=== PATIENT | male | born 1965 | race Two or more races ===

== ENCOUNTER 2020-11-16 16:18 | Inpatient (IN) | payer MEDICAID ==
[~2020-11-16] VITALS: Ht 177.8 cm; Wt 118.1 kg
[2020-11-16] MEDS ORDERED: CLINDAMYCIN 600MG IV 50 ML IV ONE (17:45)
[2020-11-16 17:52] LABS: Basophils # (auto) 0 10 ^3/uL (0-0.2); Basophils % (auto) 0.6 % (0.0-2.0); Eosinophils # (auto) 0.1 10 ^3/uL (0-0.8); Eosinophils % (auto) 1.7 % (0.0-7.0); Hematocrit 37.4 % (41.0-53.0); Hemoglobin 12.7 g/dL (13.5-17.5); Lymphocytes # (auto) 2.3 10 ^3/uL (0.4-5.4); Lymphocytes % (auto) 41.1 % (10.0-50.0); Mean Corpuscular Hemoglobin 27.3 pg (28.0-32.0); Mean Corpuscular Hgb Conc. 34.1 g/dL (32.0-36.0); Monocytes # (auto) 0.3 10 ^3/uL (0-1.3); Monocytes % (auto) 5.3 % (0.0-12.0); Neutrophils # (auto) 2.8 10 ^3/uL (1.6-8.6); Neutrophils % (auto) 51.3 % (37.0-80.0); Nucleated Red Blood Cells % 0.2 %; Platelet Count (auto) 209 10^3/uL (140-450); Red Blood Cells 4.67 10^6/uL (4.5-5.90); Red Cell Distribution Width 13.6 % (11.8-14.3); White Blood Cell 5.6 10^3/uL (4.4-10.8)
[2020-11-16 17:58] LABS: Albumin 2.7 g/dL (3.4-5.0); Calcium 8.5 mg/dL (8.5-10.1)
[2020-11-16 18:01] LABS: BUN/Creatinine Ratio 13.3; Bilirubin, Total 0.3 mg/dL (0.2-1.0); Total Protein 7.6 g/dL (6.4-8.2)
[2020-11-16 18:28] LABS: INR 3.15 (0.9-1.15); Partial Thromboplastin Time 39.6 sec (23.0-31.2)
[2020-11-16] MEDS ORDERED: ONDANSETRON HCL 4 MG/2 ML VIAL IV PRN (19:00)
[2020-11-16] MEDS ORDERED: MORPHINE SULF INJ 2 MG/ML SYRINGE 1ML IV PRN (19:00)
[2020-11-16] MEDS ORDERED: HYDROcodone-ACET 5/325MG TAB PO PRN (19:00)
[2020-11-16] MEDS ORDERED: DOCUSATE SOD 100 MG CAP PO PRN (19:00)
[2020-11-16] MEDS ORDERED: NITROGLYCERIN 0.4 MG SL TAB SL PRN (19:00)
[2020-11-16] MEDS ORDERED: MORPHINE SULFATE 4 MG/ML SYR/VIAL IV PRN (19:00)
[2020-11-16] MEDS ORDERED: TEMAZEPAM 15 MG CAP PO PRN (19:00)
[2020-11-16 21:33] VITALS: BP 143/75
[2020-11-16] MEDS: CLINDAMYCIN 600MG IV 50 ML IV SCH (23:21)
[2020-11-16] MEDS: ASCORBIC ACID 500 MG TAB PO SCH (23:21)
[2020-11-16] MEDS: FAMOTIDINE 20 MG TAB PO SCH (23:21)
[2020-11-16 23:54] VITALS: BP 143/75
[2020-11-17] MEDS ORDERED: INSU1INJ3 SC (01:38)
[2020-11-17] MEDS ORDERED: LISI-646 PO (01:38)
[2020-11-17] MEDS ORDERED: ASPI81CH74 PO (01:38)
[2020-11-17] MEDS ORDERED: ATO40T PO (01:38)
[2020-11-17] MEDS ORDERED: METF-370 PO (01:38)
[2020-11-17] MEDS ORDERED: CIPR500T4 PO (01:38)
[2020-11-17] MEDS ORDERED: DEXTROSE (50%) 50ML SYRG IV PRN (03:45)
[2020-11-17 05:00] VITALS: BP 138/75
[2020-11-17] MEDS: ACCU-CHEK COMFORT CURVE STRIP VI SCH ×4 (06:14→21:40)
[2020-11-17] MEDS: CLINDAMYCIN 600MG IV 50 ML IV SCH (06:14)
[2020-11-17] MEDS: InsuLIN REG 1unit/0.01ml Soln (100units/ml) SC SCH ×4 (06:18→21:41)
[2020-11-17 06:55] LABS: Albumin 2.4 g/dL (3.4-5.0); BUN/Creatinine Ratio 11.1; Bilirubin, Total 0.4 mg/dL (0.2-1.0); Calcium 8.4 mg/dL (8.5-10.1); Total Protein 6.9 g/dL (6.4-8.2)
[2020-11-17 07:03] LABS: Basophils # (auto) 0 10 ^3/uL (0-0.2); Basophils % (auto) 0.5 % (0.0-2.0); Eosinophils # (auto) 0.2 10 ^3/uL (0-0.8); Eosinophils % (auto) 2.7 % (0.0-7.0); Hematocrit 35.8 % (41.0-53.0); Lymphocytes # (auto) 2.8 10 ^3/uL (0.4-5.4); Lymphocytes % (auto) 48.9 % (10.0-50.0); Mean Corpuscular Hgb Conc. 33.6 g/dL (32.0-36.0); Mean Corpuscular Volume 80.3 fL (80.0-100.0); Monocytes # (auto) 0.4 10 ^3/uL (0-1.3); Monocytes % (auto) 6.2 % (0.0-12.0); Neutrophils # (auto) 2.4 10 ^3/uL (1.6-8.6); Neutrophils % (auto) 41.7 % (37.0-80.0); Platelet Count (auto) 200 10^3/uL (140-450); Red Blood Cells 4.46 10^6/uL (4.5-5.90); Red Cell Distribution Width 13.8 % (11.8-14.3); White Blood Cell 5.7 10^3/uL (4.4-10.8)
[2020-11-17 08:00] VITALS: BP 153/84
[2020-11-17 09:00] VITALS: BP 153/84
[2020-11-17] MEDS ORDERED: VANCOMYCIN PER PHARMACY 0 MG IV SCH (10:00)
[2020-11-17] MEDS: ZINC SULFATE 220mg CAP or TAB PO SCH (12:59)
[2020-11-17] MEDS: MULTIPLE VITAMIN TAB PO SCH (12:59)
[2020-11-17] MEDS: FAMOTIDINE 20 MG TAB PO SCH ×2 (12:59→21:40)
[2020-11-17 13:00] VITALS: BP 149/74
[2020-11-17] MEDS: ASCORBIC ACID 500 MG TAB PO SCH ×2 (13:00→21:40)
[2020-11-17] MEDS: VANCOMYCIN 1GM/250ML 250 ML IV SCH ×2 (13:01→19:47)
[2020-11-17 16:43] VITALS: BP 152/82
[2020-11-17 22:00] VITALS: BP 153/79
[2020-11-18] MEDS: VANCOMYCIN 1GM/250ML 250 ML IV SCH ×3 (04:04→19:55)
[2020-11-18 05:00] VITALS: BP 157/77
[2020-11-18] MEDS: ACCU-CHEK COMFORT CURVE STRIP VI SCH ×4 (06:32→21:48)
[2020-11-18] MEDS: InsuLIN REG 1unit/0.01ml Soln (100units/ml) SC SCH ×4 (06:35→21:50)
[2020-11-18 08:05] VITALS: BP 172/85
[2020-11-18 09:00] VITALS: BP 172/85
[2020-11-18] MEDS: MULTIPLE VITAMIN TAB PO SCH (09:34)
[2020-11-18] MEDS: ZINC SULFATE 220mg CAP or TAB PO SCH (09:34)
[2020-11-18] MEDS: FAMOTIDINE 20 MG TAB PO SCH ×2 (09:34→21:48)
[2020-11-18] MEDS: ASCORBIC ACID 500 MG TAB PO SCH ×2 (09:35→21:48)
[2020-11-18] MEDS: hydrALAZINE HCL 20 MG/ML VL IV PRN ×2 (09:37→21:49)
[2020-11-18 13:00] VITALS: BP 170/87
[2020-11-18 16:54] VITALS: BP 167/84
[2020-11-18] MEDS: DAKINS QUARTER STR 0.125% (NaHypochlorite) 473 ML TOPICAL SOL TOP SCH (21:49)
[2020-11-18 22:00] VITALS: BP 163/77
[2020-11-19] MEDS: VANCOMYCIN 1GM/250ML 250 ML IV SCH ×3 (04:03→20:38)
[2020-11-19 05:30] VITALS: BP 155/78
[2020-11-19] MEDS: ACCU-CHEK COMFORT CURVE STRIP VI SCH ×4 (06:29→21:53)
[2020-11-19] MEDS: InsuLIN REG 1unit/0.01ml Soln (100units/ml) SC SCH ×4 (06:32→21:58)
[2020-11-19] MEDS ORDERED: DAKINS QUARTER STR 0.125% (NaHypochlorite) 473 ML TOPICAL SOL TOP ONE (07:45)
[2020-11-19] MEDS ORDERED: LIDOCAINE 1% HCL (LOCAL ANESTH.) INJ 20ML MDV ONE (08:01)
[2020-11-19] MEDS ORDERED: BUPIVACAINE 0.5% MPF INJ 30ML SDV IJ ONE (08:01)
[2020-11-19 08:39] VITALS: BP 151/77
[2020-11-19 08:44] LABS: Basophils # (auto) 0 10 ^3/uL (0-0.2); Basophils % (auto) 0.4 % (0.0-2.0); Eosinophils # (auto) 0.1 10 ^3/uL (0-0.8); Eosinophils % (auto) 1.6 % (0.0-7.0); Hematocrit 42.1 % (41.0-53.0); Hemoglobin 14.2 g/dL (13.5-17.5); Lymphocytes # (auto) 2.5 10 ^3/uL (0.4-5.4); Lymphocytes % (auto) 34.9 % (10.0-50.0); Mean Corpuscular Hemoglobin 27.1 pg (28.0-32.0); Mean Corpuscular Hgb Conc. 33.7 g/dL (32.0-36.0); Mean Corpuscular Volume 80.4 fL (80.0-100.0); Monocytes # (auto) 0.4 10 ^3/uL (0-1.3); Neutrophils # (auto) 4.2 10 ^3/uL (1.6-8.6); Neutrophils % (auto) 58.1 % (37.0-80.0); Nucleated Red Blood Cells % 0.6 %; Platelet Count (auto) 215 10^3/uL (140-450); Red Blood Cells 5.24 10^6/uL (4.5-5.90); Red Cell Distribution Width 13.9 % (11.8-14.3); White Blood Cell 7.2 10^3/uL (4.4-10.8)
[2020-11-19 08:45] LABS: INR 0.99 (0.9-1.15); Partial Thromboplastin Time 27.1 sec (23.0-31.2)
[2020-11-19 08:50] LABS: Albumin 2.8 g/dL (3.4-5.0); BUN/Creatinine Ratio 12.1; Bilirubin, Total 0.5 mg/dL (0.2-1.0); Calcium 8.8 mg/dL (8.5-10.1); Total Protein 7.8 g/dL (6.4-8.2)
[2020-11-19] MEDS ORDERED: MIDAZOLAM HCL 1MG/1ML-2 ML VIAL ONE (09:06)
[2020-11-19] MEDS ORDERED: fentaNYL CITRATE 100 MCG/2 ML VL ONE (09:06)
[2020-11-19] MEDS ORDERED: ceFAZolin 1GM/50ML 50 ML IV ONE ×2 (09:17→09:20)
[2020-11-19] MEDS: ZINC SULFATE 220mg CAP or TAB PO SCH (10:00)
[2020-11-19] MEDS: DAKINS QUARTER STR 0.125% (NaHypochlorite) 473 ML TOPICAL SOL TOP SCH ×2 (10:00→22:00)
[2020-11-19] MEDS: ASCORBIC ACID 500 MG TAB PO SCH ×2 (10:00→21:47)
[2020-11-19] MEDS: MULTIPLE VITAMIN TAB PO SCH (10:00)
[2020-11-19] MEDS: FAMOTIDINE 20 MG TAB PO SCH ×2 (10:00→21:47)
[2020-11-19] MEDS ORDERED: ONDANSETRON HCL 4 MG/2 ML VIAL IV PRN (10:30)
[2020-11-19] MEDS ORDERED: HYDROmorphone HCL 2 MG/ML VL IV PRN (10:30)
[2020-11-19 10:55] VITALS: BP 144/78
[2020-11-19 13:00] VITALS: BP 148/78
[2020-11-19 16:55] VITALS: BP 165/91
[2020-11-19] MEDS: AMPICILLIN & SULBACTAM SODIUM 3 GM in SODIUM CHL 0.9% 100 ML IV SCH ×2 (18:00→23:53)
[2020-11-19] MEDS ORDERED: LIDOCAINE 1% (LOCAL ANESTH.) PF 5ml SDV ID ONE (20:45)
[2020-11-19 22:00] VITALS: BP 154/81
[2020-11-19] MEDS: SODIUM CHLOR 0.9% PF (SALINE LOCK) 10ML VIAL/SYR IV SCH (22:23)
[2020-11-20] MEDS: VANCOMYCIN 1GM/250ML 250 ML IV SCH ×3 (04:46→20:04)
[2020-11-20 05:00] VITALS: BP 137/78
[2020-11-20] MEDS: InsuLIN REG 1unit/0.01ml Soln (100units/ml) SC SCH ×4 (06:18→21:12)
[2020-11-20] MEDS: ACCU-CHEK COMFORT CURVE STRIP VI SCH ×4 (06:18→21:12)
[2020-11-20] MEDS: AMPICILLIN & SULBACTAM SODIUM 3 GM in SODIUM CHL 0.9% 100 ML IV SCH ×4 (06:18→23:10)
[2020-11-20 09:00] VITALS: BP 150/77
[2020-11-20] MEDS: ZINC SULFATE 220mg CAP or TAB PO SCH (09:27)
[2020-11-20] MEDS: SODIUM CHLOR 0.9% PF (SALINE LOCK) 10ML VIAL/SYR IV SCH ×2 (09:27→21:11)
[2020-11-20] MEDS: MULTIPLE VITAMIN TAB PO SCH (09:28)
[2020-11-20] MEDS: ASCORBIC ACID 500 MG TAB PO SCH ×2 (09:28→21:50)
[2020-11-20] MEDS: FAMOTIDINE 20 MG TAB PO SCH ×2 (09:28→21:11)
[2020-11-20] MEDS: DAKINS QUARTER STR 0.125% (NaHypochlorite) 473 ML TOPICAL SOL TOP SCH ×2 (10:00→21:12)
[2020-11-20 13:00] VITALS: BP 161/74
[2020-11-20 16:40] VITALS: BP 162/69
[2020-11-20 18:40] VITALS: BP 148/69
[2020-11-20 22:00] VITALS: BP_SYST 148; BP_SYST 48; BP_DIAS 86
[2020-11-21] MEDS: VANCOMYCIN 1GM/250ML 250 ML IV SCH ×2 (03:54→12:00)
[2020-11-21 05:00] VITALS: BP 143/73
[2020-11-21] MEDS: AMPICILLIN & SULBACTAM SODIUM 3 GM in SODIUM CHL 0.9% 100 ML IV SCH ×3 (05:20→18:21)
[2020-11-21 05:28] VITALS: BP 145/81
[2020-11-21 05:50] LABS: Basophils # (auto) 0 10 ^3/uL (0-0.2); Hemoglobin 12.9 g/dL (13.5-17.5); Lymphocytes # (auto) 2.2 10 ^3/uL (0.4-5.4); Monocytes # (auto) 0.4 10 ^3/uL (0-1.3); Neutrophils # (auto) 3.6 10 ^3/uL (1.6-8.6); Nucleated Red Blood Cells % 0.1 %; Red Cell Distribution Width 13.7 % (11.8-14.3); White Blood Cell 6.4 10^3/uL (4.4-10.8)
[2020-11-21 05:53] LABS: Basophils % (auto) 0.4 % (0.0-2.0); Eosinophils # (auto) 0.2 10 ^3/uL (0-0.8); Eosinophils % (auto) 2.5 % (0.0-7.0); Hematocrit 37.8 % (41.0-53.0); Mean Corpuscular Hemoglobin 27.1 pg (28.0-32.0); Mean Corpuscular Volume 79.6 fL (80.0-100.0); Monocytes % (auto) 6.8 % (0.0-12.0); Neutrophils % (auto) 55.3 % (37.0-80.0); Platelet Count (auto) 171 10^3/uL (140-450); Red Blood Cells 4.74 10^6/uL (4.5-5.90)
[2020-11-21] MEDS: ACCU-CHEK COMFORT CURVE STRIP VI SCH ×4 (06:01→21:02)
[2020-11-21] MEDS: InsuLIN REG 1unit/0.01ml Soln (100units/ml) SC SCH ×4 (06:05→21:03)
[2020-11-21 06:25] LABS: Potassium 3.7 mmol/L (3.5-5.1)
[2020-11-21 06:34] LABS: BUN/Creatinine Ratio 14.6; Calcium 8.7 mg/dL (8.5-10.1)
[2020-11-21 09:00] VITALS: BP 138/71
[2020-11-21] MEDS: ZINC SULFATE 220mg CAP or TAB PO SCH (09:36)
[2020-11-21] MEDS: SODIUM CHLOR 0.9% PF (SALINE LOCK) 10ML VIAL/SYR IV SCH ×2 (09:36→21:01)
[2020-11-21] MEDS: MULTIPLE VITAMIN TAB PO SCH (09:36)
[2020-11-21] MEDS: DAKINS QUARTER STR 0.125% (NaHypochlorite) 473 ML TOPICAL SOL TOP SCH ×2 (09:37→21:02)
[2020-11-21] MEDS: ASCORBIC ACID 500 MG TAB PO SCH ×2 (09:37→21:01)
[2020-11-21] MEDS: FAMOTIDINE 20 MG TAB PO SCH ×2 (09:37→21:01)
[2020-11-21 13:00] VITALS: BP 157/77
[2020-11-21] MEDS ORDERED: LISINOPRIL 5 MG TAB PO ONE (13:00)
[2020-11-21 17:09] VITALS: BP 154/65
[2020-11-22] MEDS: AMPICILLIN & SULBACTAM SODIUM 3 GM in SODIUM CHL 0.9% 100 ML IV SCH ×3 (00:03→12:01)
[2020-11-22 05:00] VITALS: BP 147/78
[2020-11-22] MEDS: InsuLIN REG 1unit/0.01ml Soln (100units/ml) SC SCH ×2 (06:09→12:01)
[2020-11-22] MEDS: ACCU-CHEK COMFORT CURVE STRIP VI SCH ×2 (06:10→11:30)
[2020-11-22 09:00] VITALS: BP 134/67
[2020-11-22] MEDS: FAMOTIDINE 20 MG TAB PO SCH (09:28)
[2020-11-22] MEDS: ASCORBIC ACID 500 MG TAB PO SCH (09:29)
[2020-11-22] MEDS: MULTIPLE VITAMIN TAB PO SCH (09:29)
[2020-11-22] MEDS: ZINC SULFATE 220mg CAP or TAB PO SCH (09:30)
[2020-11-22] MEDS: SODIUM CHLOR 0.9% PF (SALINE LOCK) 10ML VIAL/SYR IV SCH (09:30)
[2020-11-22] MEDS ORDERED: LISINOPRIL 5 MG TAB PO SCH (10:00)
[2020-11-22] MEDS: DAKINS QUARTER STR 0.125% (NaHypochlorite) 473 ML TOPICAL SOL TOP SCH (11:15)
[2020-11-22 12:31] VITALS: BP 162/88
[2020-11-22 12:37] VITALS: BP 134/67
== END 2020-11-22 14:30 | disposition home health service (06) | DRG 305 ==
LOC: ER 16:18 → TELE 18:59 → TELE-WESTW 21:35
PROVIDERS: ADMIT Nurse Practitioner; ATTEND Nurse Practitioner
PROC: 02HV33Z Insertion of Infusion Device into Superior Vena Cava, Percutaneous Approach (ICD-10-PCS; 2020-11-19)
PROC: 0Y6M0ZB Detachment at Right Foot, Partial 2nd Ray, Open Approach (ICD-10-PCS; principal; 2020-11-19 09:21)
DX: E11.69 Type 2 diabetes mellitus with other specified complication (principal); E44.0 Moderate protein-calorie malnutrition; M00.9 Pyogenic arthritis, unspecified; M86.171 Other acute osteomyelitis, right ankle and foot; E11.621 Type 2 diabetes mellitus with foot ulcer; I10 Essential (primary) hypertension; L97.519 Non-pressure chronic ulcer of other part of right foot with unspecified severity; E78.5 Hyperlipidemia, unspecified; M19.90 Unspecified osteoarthritis, unspecified site; E66.9 Obesity, unspecified; Z20.822 Contact with and (suspected) exposure to COVID-19; B95.2 Enterococcus as the cause of diseases classified elsewhere; Z82.49 Family history of ischemic heart disease and other diseases of the circulatory system; Z83.3 Family history of diabetes mellitus; Z68.36 Body mass index [BMI] 36.0-36.9, adult; Z79.84 Long term (current) use of oral hypoglycemic drugs; Z79.899 Other long term (current) drug therapy
CPT/HCPCS: 36415; 36569; 71045; 73700; 80048; 80053; 80202; 82565; 82962; 83605; 83735; 85025; 85610; 85730; 86850; 86900; 86901; 87040; 87070; 87075; 87077; 87186; 87205; 87426; 96365; G0378; J0690; J1815; J2001; J2250; J3490

== ENCOUNTER 2023-05-09 16:03 | Inpatient (IN) | payer MEDICAID ==
[~2023-05-09] VITALS: Ht 177.8 cm; Wt 116.0 kg
[~2023-05-09 16:03] MED LIST: ASPI81CH74 PO; ATO40T PO; CIPR500T4 PO; INSU1INJ3 SC; LISI20TA56 PO; METF-370 PO
[2023-05-09] MEDS ORDERED: IPRATROPIUM BROM 0.5 MG/2.5ML INH SOL NEB ONE (16:30)
[2023-05-09] MEDS ORDERED: ALBUTEROL SULF 2.5 MG/0.5ML(0.5%) NEB SOLN NEB ONE (16:30)
[2023-05-09] MEDS ORDERED: DexAMETHasone SOD PHOS 10MG/1ML VIAL INJ IM ONE (16:30)
[2023-05-09 16:53] LABS: Basophils # (auto) 0 10 ^3/uL (0-0.2); Basophils % (auto) 0.3 % (0.0-2.0); Eosinophils # (auto) 0.1 10 ^3/uL (0-0.8); Eosinophils % (auto) 1.2 % (0.0-7.0); Hematocrit 44.3 % (41.0-53.0); Hemoglobin 14.9 g/dL (13.5-17.5); Lymphocytes # (auto) 2.1 10 ^3/uL (0.4-5.4); Lymphocytes % (auto) 19.7 % (10.0-50.0); Mean Corpuscular Hemoglobin 28.2 pg (28.0-32.0); Mean Corpuscular Hgb Conc. 33.6 g/dL (32.0-36.0); Mean Corpuscular Volume 83.8 fL (80.0-100.0); Monocytes # (auto) 0.6 10 ^3/uL (0-1.3); Monocytes % (auto) 5.3 % (0.0-12.0); Neutrophils % (auto) 73.5 % (37.0-80.0); Nucleated Red Blood Cells % 0.1 %; Red Blood Cells 5.29 10^6/uL (4.5-5.90); Red Cell Distribution Width 13.5 % (11.8-14.3); White Blood Cell 10.8 10^3/uL (4.4-10.8)
[2023-05-09 17:07] LABS: Alanine Aminotransferase 56 U/L (7-40); Albumin 4.1 g/dL (3.2-4.8); Alkaline Phosphatase 122 U/L (46-116); Anion Gap 6 (5-15); Aspartate Aminotransferase 46 U/L (13-40); BUN/Creatinine Ratio 16.2 (10.0-20.0); Blood Urea Nitrogen 21 mg/dL (9-23); Carbon Dioxide 25 mmol/L (20-30); Chloride 104 mmol/L (98-107); Glucose 264 mg/dL (74-106); Potassium 5.4 mmol/L (3.5-5.1); Sodium 135 mmol/L (136-145); Total Protein 7.1 g/dL (5.7-8.2)
[2023-05-09 21:31] LABS: Urine Amorphous Crystal FEW /hpf (None Seen); Urine Bacteria NONE SEEN /hpf (None Seen); Urine Blood Negative /uL (Negative); Urine Clarity HAZY (Clear); Urine Color Yellow (Yellow); Urine Hyaline Cast FEW /lpf (0 - 2); Urine Mucus FEW (None Seen); Urine Protein, UAD 2+ (Negative); Urine Specific Gravity 1.025 (1.001-1.035); Urine Urobilinogen Normal (Negative); Urine WBC <1 /hpf (0 - 3); Urine pH 5.5 (5.0-8.0)
[2023-05-10] MEDS ORDERED: ENOXAPARIN SOD 40 MG/0.4 ML SYRINGE SC ONE (01:30)
[2023-05-10 02:30] VITALS: PULSE 101; RESP 11; O2SAT 92
[2023-05-10] MEDS ORDERED: HEPARIN SODIUM (PORCINE) 5000 UNITS/ML 1ML VIAL IV ONE (05:45)
[2023-05-10] MEDS ORDERED: HEPARIN DRIP/D5W 100UNITS/ML 250 ML IV SCH ×2 (05:45→09:45)
[2023-05-10] MEDS ORDERED: HYDROcodone-ACET 5/325MG TAB PO PRN (06:00)
[2023-05-10] MEDS ORDERED: ENOXAPARIN SOD 60 MG/0.6 ML SYRINGE SC ONE (06:00)
[2023-05-10] MEDS ORDERED: ONDANSETRON HCL 4 MG/2 ML VIAL IV PRN (06:00)
[2023-05-10] MEDS ORDERED: TEMAZEPAM 15 MG CAP PO PRN (06:00)
[2023-05-10] MEDS ORDERED: MORPHINE SULFATE INJ 2 MG/ml SYRG IV PRN ×2 (06:00)
[2023-05-10] MEDS ORDERED: NITROGLYCERIN 0.4 MG SL TAB SL PRN (06:00)
[2023-05-10] MEDS ORDERED: ACETAMINOPHEN 325 MG TAB PO PRN (06:00)
[2023-05-10] MEDS ORDERED: DEXTROSE (50%) 50ML SYRG IV PRN (06:15)
[2023-05-10 06:16] LABS: Basophils # (auto) 0 10 ^3/uL (0-0.2); Basophils % (auto) 0.1 % (0.0-2.0); Eosinophils # (auto) 0 10 ^3/uL (0-0.8); Hematocrit 44.3 % (41.0-53.0); Hemoglobin 14.8 g/dL (13.5-17.5); Lymphocytes # (auto) 1.3 10 ^3/uL (0.4-5.4); Lymphocytes % (auto) 11.6 % (10.0-50.0); Mean Corpuscular Hemoglobin 27.8 pg (28.0-32.0); Mean Corpuscular Hgb Conc. 33.4 g/dL (32.0-36.0); Mean Corpuscular Volume 83.3 fL (80.0-100.0); Monocytes # (auto) 0.2 10 ^3/uL (0-1.3); Monocytes % (auto) 1.8 % (0.0-12.0); Neutrophils # (auto) 9.8 10 ^3/uL (1.6-8.6); Neutrophils % (auto) 86.5 % (37.0-80.0); Nucleated Red Blood Cells % 0.2 %; Red Blood Cells 5.32 10^6/uL (4.5-5.90); Red Cell Distribution Width 13.6 % (11.8-14.3); White Blood Cell 11.3 10^3/uL (4.4-10.8)
[2023-05-10] MEDS: ACCU-CHEK COMFORT CURVE STRIP VI SCH ×4 (06:55→21:45)
[2023-05-10] MEDS: InsuLIN REG 1unit/0.01ml Soln (100units/ml) SC SCH ×4 (06:56→21:53)
[2023-05-10 07:39] LABS: INR 1.14 (0.9-1.15); Partial Thromboplastin Time 28.9 SEC (24.5-34.5); Prothrombin Time 11.9 sec (9.3-11.8)
[2023-05-10 08:00] VITALS: PULSE 89; RESP 20; O2SAT 92
[2023-05-10] MEDS ORDERED: ENOXAPARIN SOD 40 MG/0.4 ML SYRINGE SC SCH (10:00)
[2023-05-10 13:02] LABS: Alanine Aminotransferase 51 U/L (7-40); Albumin 4.1 g/dL (3.2-4.8); Alkaline Phosphatase 111 U/L (46-116); Anion Gap 7 (5-15); Aspartate Aminotransferase 27 U/L (13-40); BUN/Creatinine Ratio 15.1 (10.0-20.0); Blood Urea Nitrogen 22 mg/dL (9-23); Calcium 8.9 mg/dL (8.7-10.4); Carbon Dioxide 23 mmol/L (20-30); Chloride 104 mmol/L (98-107); Glucose 348 mg/dL (74-106); Sodium 134 mmol/L (136-145)
[2023-05-10 13:03] LABS: Bilirubin, Total 0.7 mg/dL (0.2-1.0); Total Protein 7.5 g/dL (5.7-8.2)
[2023-05-10 13:45] LABS: INR 1.15 (0.9-1.15)
[2023-05-10 14:14] LABS: Partial Thromboplastin Time 108.4 SEC (24.5-34.5)
[2023-05-10] MEDS: HEPARIN DRIP/D5W 100UNITS/ML 250 ML IV SCH ×2 (15:18→22:24)
[2023-05-10] MEDS ORDERED: ENOXAPARIN SOD 100 MG/1 ML SYRINGE SC SCH (18:00)
[2023-05-10 19:35] VITALS: PULSE 78; RESP 16; O2SAT 96
[2023-05-10] MEDS: ATORVASTATIN 20 MG TAB PO SCH (21:51)
[2023-05-10] MEDS ORDERED: GLIM4TAB42 PO (22:55)
[2023-05-10] MEDS ORDERED: METO25TA93 PO (23:01)
[2023-05-10 23:03] VITALS: BP 129/69; PULSE 79; RESP 18; TEMP 97.5; O2SAT 90
[2023-05-10 23:11] LABS: INR 1.12 (0.9-1.15); Partial Thromboplastin Time 53.7 SEC (24.5-34.5); Prothrombin Time 11.7 sec (9.3-11.8)
[2023-05-11] VITALS (9 sets, daily range): BP systolic 104–147; BP diastolic 66–88; PULSE 57–71; RESP 11–20; TEMP 97.3–97.9; O2SAT 93–100
[2023-05-11 05:52] LABS: Basophils # (auto) 0 10 ^3/uL (0-0.2); Basophils % (auto) 0.4 % (0.0-2.0); Eosinophils # (auto) 0 10 ^3/uL (0-0.8); Eosinophils % (auto) 0.1 % (0.0-7.0); Hematocrit 41.3 % (41.0-53.0); Hemoglobin 14.2 g/dL (13.5-17.5); Lymphocytes # (auto) 2.5 10 ^3/uL (0.4-5.4); Lymphocytes % (auto) 20.3 % (10.0-50.0); Mean Corpuscular Hemoglobin 28.1 pg (28.0-32.0); Mean Corpuscular Hgb Conc. 34.3 g/dL (32.0-36.0); Mean Corpuscular Volume 81.9 fL (80.0-100.0); Monocytes # (auto) 0.5 10 ^3/uL (0-1.3); Monocytes % (auto) 4.3 % (0.0-12.0); Neutrophils # (auto) 9.2 10 ^3/uL (1.6-8.6); Neutrophils % (auto) 74.9 % (37.0-80.0); Red Blood Cells 5.04 10^6/uL (4.5-5.90); Red Cell Distribution Width 13.5 % (11.8-14.3); White Blood Cell 12.3 10^3/uL (4.4-10.8)
[2023-05-11] MEDS: ACCU-CHEK COMFORT CURVE STRIP VI SCH ×4 (06:07→22:17)
[2023-05-11 06:08] LABS: Alanine Aminotransferase 50 U/L (7-40); Albumin 3.9 g/dL (3.2-4.8); Alkaline Phosphatase 90 U/L (46-116); Anion Gap 7 (5-15); Aspartate Aminotransferase 39 U/L (13-40); BUN/Creatinine Ratio 16.1 (10.0-20.0); Bilirubin, Total 0.7 mg/dL (0.2-1.0); Blood Urea Nitrogen 18 mg/dL (9-23); Carbon Dioxide 26 mmol/L (20-30); Chloride 102 mmol/L (98-107); Potassium 4.3 mmol/L (3.5-5.1); Sodium 135 mmol/L (136-145)
[2023-05-11 06:09] LABS: Total Protein 6.9 g/dL (5.7-8.2)
[2023-05-11] MEDS: InsuLIN REG 1unit/0.01ml Soln (100units/ml) SC SCH ×4 (06:09→22:19)
[2023-05-11 06:12] LABS: INR 1.09 (0.9-1.15); Partial Thromboplastin Time 53.6 SEC (24.5-34.5); Prothrombin Time 11.4 sec (9.3-11.8)
[2023-05-11 06:23] LABS: Glucose 187 mg/dL (74-106)
[2023-05-11] MEDS: LISINOPRIL 20 MG TAB PO SCH (10:23)
[2023-05-11] MEDS: ASPirin 81 mg TAB PO SCH (10:23)
[2023-05-11 12:17] LABS: INR 1.08 (0.9-1.15); Partial Thromboplastin Time 55.3 SEC (24.5-34.5); Prothrombin Time 11.3 sec (9.3-11.8)
[2023-05-11] MEDS: HEPARIN DRIP/D5W 100UNITS/ML 250 ML IV SCH (13:20)
[2023-05-11 13:41] LABS: Basophils # (auto) 0.1 10 ^3/uL (0-0.2); Basophils % (auto) 0.6 % (0.0-2.0); Eosinophils # (auto) 0 10 ^3/uL (0-0.8); Eosinophils % (auto) 0.2 % (0.0-7.0); Hematocrit 47.2 % (41.0-53.0); Hemoglobin 15.7 g/dL (13.5-17.5); Lymphocytes # (auto) 3.9 10 ^3/uL (0.4-5.4); Lymphocytes % (auto) 32.5 % (10.0-50.0); Mean Corpuscular Hemoglobin 28.1 pg (28.0-32.0); Mean Corpuscular Hgb Conc. 33.3 g/dL (32.0-36.0); Mean Corpuscular Volume 84.6 fL (80.0-100.0); Monocytes # (auto) 0.5 10 ^3/uL (0-1.3); Monocytes % (auto) 4.4 % (0.0-12.0); Neutrophils # (auto) 7.6 10 ^3/uL (1.6-8.6); Neutrophils % (auto) 62.3 % (37.0-80.0); Nucleated Red Blood Cells % 0.1 %; Red Blood Cells 5.58 10^6/uL (4.5-5.90); Red Cell Distribution Width 13.6 % (11.8-14.3); White Blood Cell 12.1 10^3/uL (4.4-10.8)
[2023-05-11] MEDS ORDERED: fentaNYL CITRATE 100 MCG/2 ML VL ONE (16:09)
[2023-05-11] MEDS ORDERED: ANGIOMAX 250 MG VIAL IV ONE (16:09)
[2023-05-11] MEDS ORDERED: MIDAZOLAM HCL 2MG/2ML 2ml VIAL (1mg/ml) ONE (16:10)
[2023-05-11] MEDS ORDERED: LIDOCAINE 2%HCL (LOCAL ANESTH.) INJ 20ML MDV ONE (16:10)
[2023-05-11] MEDS ORDERED: SODIUM CHL 0.9% 0 ML ONE (16:10)
[2023-05-11] MEDS ORDERED: IOHEXOL 350 MG/ML 100ML IJ ONE (16:57)
[2023-05-11] MEDS ORDERED: HEPARIN SODIUM (PORCINE) 5000 UNITS/ML 1ML VIAL ONE (17:56)
[2023-05-11 22:07] LABS: INR 1.09 (0.9-1.15); Partial Thromboplastin Time 33.2 SEC (24.5-34.5); Prothrombin Time 11.4 sec (9.3-11.8)
[2023-05-11] MEDS: ATORVASTATIN 20 MG TAB PO SCH (22:12)
[2023-05-12] VITALS (7 sets, daily range): BP systolic 103–116; BP diastolic 52–70; PULSE 62–87; RESP 18–20; TEMP 97.5–98.6; O2SAT 92–97
[2023-05-12 03:34] LABS: INR 1.09 (0.9-1.15); Partial Thromboplastin Time 52.1 SEC (24.5-34.5); Prothrombin Time 11.4 sec (9.3-11.8)
[2023-05-12] MEDS: ACCU-CHEK COMFORT CURVE STRIP VI SCH ×4 (06:35→21:37)
[2023-05-12] MEDS: InsuLIN REG 1unit/0.01ml Soln (100units/ml) SC SCH ×4 (06:47→21:42)
[2023-05-12] MEDS: ASPirin 81 mg TAB PO SCH (09:55)
[2023-05-12] MEDS: LISINOPRIL 20 MG TAB PO SCH (09:56)
[2023-05-12] MEDS: HEPARIN DRIP/D5W 100UNITS/ML 250 ML IV SCH (12:28)
[2023-05-12] MEDS: ATORVASTATIN 20 MG TAB PO SCH (21:35)
[2023-05-13] MEDS: HEPARIN DRIP/D5W 100UNITS/ML 250 ML IV SCH (02:07)
[2023-05-13 05:00] VITALS: BP 103/57; PULSE 75; RESP 18; TEMP 98.2; O2SAT 100
[2023-05-13] MEDS: InsuLIN REG 1unit/0.01ml Soln (100units/ml) SC SCH ×3 (06:31→16:57)
[2023-05-13] MEDS: ACCU-CHEK COMFORT CURVE STRIP VI SCH ×3 (06:31→16:57)
[2023-05-13 06:53] LABS: INR 1.06 (0.9-1.15); Partial Thromboplastin Time 61.8 SEC (24.5-34.5); Prothrombin Time 11.1 sec (9.3-11.8)
[2023-05-13] MEDS: LISINOPRIL 20 MG TAB PO SCH (08:17)
[2023-05-13 08:30] VITALS: PULSE 67; PULSE 73; RESP 20; O2SAT 92
[2023-05-13 09:00] VITALS: BP 97/62; PULSE 73; RESP 20; TEMP 97.9; O2SAT 92
[2023-05-13] MEDS: ASPirin 81 mg TAB PO SCH (09:03)
[2023-05-13] MEDS ORDERED: APIX5TAB PO (10:45)
[2023-05-13 12:54] VITALS: BP 104/58; PULSE 73; RESP 20; TEMP 98; O2SAT 93
[2023-05-13] MEDS ORDERED: APIXABAN 5 MG TAB PO ONE (14:45)
[2023-05-13 17:21] VITALS: BP 123/73; PULSE 82; RESP 20; TEMP 97.9; O2SAT 97
[2023-05-13] MEDS ORDERED: APIXABAN 5 MG TAB PO SCH (22:00)
[2023-05-20] MEDS ORDERED: APIXABAN 5 MG TAB PO SCH (22:00)
== END 2023-05-13 18:00 | disposition home or self-care (01) | DRG 134 ==
LOC: ER 16:03 → TELE 05-10 06:02 → TELE-WESTW 05-10 22:40
PROVIDERS: ADMIT Internal Medicine; ATTEND Internal Medicine
PROC: 02CQ3ZZ Extirpation of Matter from Right Pulmonary Artery, Percutaneous Approach (ICD-10-PCS; principal; 2023-05-11)
PROC: 02CR3ZZ Extirpation of Matter from Left Pulmonary Artery, Percutaneous Approach (ICD-10-PCS; 2023-05-11)
PROC: B31T1ZZ Fluoroscopy of Left Pulmonary Artery using Low Osmolar Contrast (ICD-10-PCS; 2023-05-11)
PROC: B31S1ZZ Fluoroscopy of Right Pulmonary Artery using Low Osmolar Contrast (ICD-10-PCS; 2023-05-11)
DX: I26.94 Multiple subsegmental thrombotic pulmonary emboli without acute cor pulmonale (principal); I82.441 Acute embolism and thrombosis of right tibial vein; E11.65 Type 2 diabetes mellitus with hyperglycemia; R55 Syncope and collapse; I10 Essential (primary) hypertension; E78.5 Hyperlipidemia, unspecified; I83.90 Asymptomatic varicose veins of unspecified lower extremity; Z79.84 Long term (current) use of oral hypoglycemic drugs; Z79.899 Other long term (current) drug therapy; Z82.49 Family history of ischemic heart disease and other diseases of the circulatory system; Z83.3 Family history of diabetes mellitus
CPT/HCPCS: 36415; 71046; 71275; 76942; 80053; 81001; 82962; 84484; 85025; 85379; 85610; 85730; 93005; 93306; 93970; 94640; 96365; 96366; 96372; 96375; 99152; C1769; C1894; G0378; J1100; J1815; J2250

== ENCOUNTER 2025-07-23 16:06 | Emergency (ER) | payer MEDICAID ==
[~2025-07-23] VITALS: Ht 177.8 cm; Wt 114.9 kg
[~2025-07-23 16:06] MED LIST changes: +APIX5TAB PO; -ASPI81CH74 PO; -ATO40T PO; +ATOR-507 PO; -CIPR500T4 PO; +GLIM4TAB42 PO; +METO25TA93 PO
--- NOTE | 2025-07-23 18:32 | ED.PDOC ---
Musculoskeletal HPI Comments 59 y/o M, presents to the ED for CC of right-hand pain. Patient reports, he was scratched by his cat x6days ago and has now developed right hand swelling and erythema. Patient further, relays to hand to be painful to touch. Patient denies fever, body-aches, nausea, or vomiting. Chief Complaint: Upper Extremity Time Seen by MD: 18:20 Primary Care Provider: SALUD Reviewed Notes: Nurses Notes, Medications, Allergies Allergies: Coded Allergies: NO KNOWN ALLERGIES (Unverified , 11/16/20) Home Meds Active Scripts Apixaban Base (ELIQUIS) 5 Mg Tab, 10 MG PO BID for 7 Days, #28 TAB 10MG BID X 7 DAYS THEN 5MG PO BID FOR AT LEAST 6 MONTHS FOR DVT/PE TREATMENT Prov:JENNY BOOKER TRACER CLERK 05/13/23 Apixaban Base (ELIQUIS) 5 Mg Tab, 5 MG PO BID for 30 Days, #60 TAB Prov:JENNY BOOKER TRACER CLERK 05/13/23 Reported Medications Metoprolol Succinate (Metoprolol Succinate Er) 25 Mg Tab, 25 MG PO, TAB 05/10/23 Glimepiride (Glimepiride) 4 Mg Tab, 4 MG PO, TAB 05/10/23 Insulin NPH Isophane & Reg (Hu (Humulin 70/30 Kwikpen (70-30) 100 Unit/ml) 1 Inj Inj, 1 INJ SC, INJ 11/17/20 Metformin Hydrochloride (Metformin Hcl) 500 Mg Tab, 500 MG PO IBID for 30 Days, MG 11/17/20 Lisinopril (Lisinopril) 20 Mg Tab, 20 MG PO DAILY for 30 Days, MG 11/17/20 Atorvastatin Calcium (Lipitor) 40 Mg Tab, 1 TAB PO DAILY, #30 TAB 5 Refills 11/17/20 Information Source: Patient Mode of Arrival: Ambulatory Location: Right Extremity Location: Hand Timing: Days Prehospital treatment: None Severity: Moderate Able to Move Extremity: Yes Pain: Moderate Mechanism: Other (CAT SCRATCH) Onset of Symptoms: After Trauma Symptoms: Swelling, Pain DVT Risk Factors: NONE Last Tetanus: Unknown Associated signs and symptoms: Swelling, Hand pain Past Medical History PAST MEDICAL HISTORY: DM, High Lipids, HTN Surgical History: Denies all surgeries Family History Family History: Family hx of DM, Family hx of HTN Social History Smoker: Non-Smoker Alcohol: Denies ETOH Use Drugs: Denies Drug Use Lives In: Home Constitutional: denies: chills, diaphoresis, fatigue, fever, malaise, sweats, weakness, others EENTM: denies: blurred vision, double vision, ear bleeding, ear discharge, ear drainage, ear pain, ear ringing, eye pain, eye redness, hearing loss, mouth pain, mouth swelling, nasal discharge, nose bleeding, nose congestion, nose pain, photophobia, tearing, throat pain, throat swelling, voice changes, others Respiratory: denies: cough, hemoptysis, orthopnea, SOB at rest, shortness of breath, SOB with excertion, stridor, wheezing, others Cardiovascular: denies: chest pain, dizzy spells, diaphoresis, Dyspnea on exertion, edema, irregular heart beat, left arm pain, lightheadedness, pa lpitations, PND, syncope, others Gastrointestinal: denies: abdomen distended, abdominal pain, blood streaked bowels, constipated, diarrhea, dysphagia, difficulty swallowing, hematemesis, melena, nausea, poor appetite, poor fluid intake, rectal bleeding, rectal pain, vomiting, others Genitourinary: denies: burning, dysuria, flank pain, frequency, hematuria, incontinence, penile discharge, penile sore, pain, testicle pain, testicle swelling, urgency, others Neurological: denies: dizziness, fainting, headache, left sided numbness, left sided weakness, numbness, paresthesia, pre-existing deficit, right sided numbness, right sided weakness, seizure, speech problems, tingling, tremors, weakness, others Musculoskeletal: denies: back pain, gout, joint pain, joint swelling, muscle pain, muscle stiffness, neck pain, others Integumetry: reports: others (RIGHT- HAND SWELLING); denies: bruises, change in color, change in hair/nails, dryness, laceration, lesions, lumps, rash, wounds Allergic/Immunocompromised: denies: Difficulty Healing, Frequent Infections, Hives, Itching, others Hematologic/Lymphatic: denies: anemia, blood clots, easy bleeding, easy bruising, swollen glands, others Endocrine: denies: excessive hunger, excessive sweating, excessive thirst, excessive urination, flushing, intolerance to cold, intolerance to heat, un explained weight gain, unexplained weight loss, others Psychiatric: denies: anxiety, bipolar disorder, depression, hopeless, panic disorder, schizophrenia, sleepless, suicidal, others All Other Systems: Reviewed and Negative Physical Exam General Appearance: No Apparent Distress, Normal HEENT: Normal ENT Inspection, Pharynx Normal Neck: Full Range of Motion, Non-Tender, Normal, Normal Inspection Respiratory: Chest Non-Tender, Lungs Clear, No Accessory Muscle Use, No Respiratory Distress, Normal Breath Sounds Cardiovascular: No Edema, No Murmur, No Gallop, Normal Peripheral Pulses, Regular Rate/Rhythm Breast Exam: Deferred Gastrointestinal: No Organomegaly, Non Tender, No Pulsatile Mass, Normal Bowel Sounds, Soft Genitalia: Deferred Pelvic: Deferred Rectal: Deferred Extremities: No calf tenderness, Normal capillary refill, Normal inspection, N ormal range of motion, Non-tender, No pedal edema, Other (RIGHT HAND SWELLING) Musculoskeletal : Apperance: Normal Neurologic: Alert, auto body mechanic II-XII nml as Tested, No Motor Deficits, Normal Affect, Normal Mood, No Sensory Deficits Cerebellar Function: Normal Reflexes: Normal Skin: Dry, Normal Color, Warm Lymphatic: No Adenopathy Was a procedure done? Was a procedure done?: No Differential Diagnosis EXT Differential Diagnosis: Cellulitis X-Ray, Labs, Meds, VS Vital Signs Date Time Temp Pulse Resp B/P (MAP) Pulse Ox O2 Delivery O2 Flow Rate FiO2 07/23/25 16:13 98.0 72 16 164/91 98 98.0 Time of 1ST Reevaluation: 18:50 Reevaluation 1ST: Unchanged Patient Education/Counseling: Diagnosis, Treatment Family Education/Counseling: No Family Present Departure 1 Departure Time of Disposition: 19:08 (Patient with cellulitis of the right side of the hand. We will discharge patient home with outpatient follow up) Impression: Primary Impression: Cellulitis Disposition: 01 HOME / SELF CARE / HOMELESS Condition: Stable Additional Instructions: You have cellulitis. This is a skin infection. You were prescribed antibiotics. Please take as directed. You can take tylenol and motrin as needed for pain. It is important that you follow up with your regular doctor within one week to ensure you are doing well. If your symptoms worsen or you have any other concerns then please return to the ER. e-Prescriptions Clindamycin Hcl (Clindamycin Hcl) 300 Mg Cap 1 CAP PO TID for 7 Days, #21 CAP Prov: KINA HANSEN MD 07/23/25 Discharged With: Self Critical Care Note Critical Care Time?: No Stability Stability form required: No Heart Score Heart Score: Heart Score Response (Comments) Value History N/A 0 EKG N/A 0 Age N/A 0 Risk Factors N/A 0 Troponin N/A 0 Total 0 I personally scribed for KINA HANSEN MD ([email or web address]) on 07/23/25 at 18:32. Electronically submitted by Leslye Bishop ([email or web address]). KINA HANSEN MD Jul 23, 2025 18:32
[2025-07-23] MEDS ORDERED: CLIN1CAP70 PO (19:08)
[2025-07-23] MEDS: SULFAMETHOX W/TRIMETH(800/160MG) DS TAB PO ONE (19:58)
[2025-07-23 20:00] VITALS: BP 161/80; PULSE 55; RESP 18; TEMP 97.7; O2SAT 98
== END 2025-07-23 20:03 | disposition home or self-care (01) ==
LOC: ER 16:06
DX: L03.113 Cellulitis of right upper limb (principal); I10 Essential (primary) hypertension; E11.9 Type 2 diabetes mellitus without complications; E78.5 Hyperlipidemia, unspecified; Z79.899 Other long term (current) drug therapy; Z79.01 Long term (current) use of anticoagulants; W55.03XA Scratched by cat, initial encounter; Y93.89 Activity, other specified; Y92.89 Other specified places as the place of occurrence of the external cause; Y99.8 Other external cause status